=== PATIENT | female | born 1985 | race Hispanic/Latino ===

== ENCOUNTER 2019-07-13 08:53 | Day surgery (SDC) | payer OTHER ==
[~2019-07-13] VITALS: Ht 170.2 cm; Wt 75.8 kg
[~2019-07-13 08:53] MED LIST: BENADRYL25 MG PO; PRENATAL 19 TA1 EAC1 PO; REGLAN10 MG PO
[2019-07-13] MEDS ORDERED: XOPENEX HFA15 GM INH (09:06)
[2019-07-13] MEDS ORDERED: SINGULAIR10 MG PO (09:06)
[2019-07-13] MEDS ORDERED: FLONASE ALLERG9.9 ML NAS (09:07)
--- NOTE | 2019-07-13 12:05 | NUR ---
07/13/19 1205 Shannan,Candy 1155 PT ARRIVED TO PACU ASLEEP RESP EVEN AND UNLABORED ON 6L VIA MASK, PT REACTIVE TO TACTILE STIMULI. 1158 PT WOKE AND IR REORIENTED TO PACU, PT RIGHT BACK TO SLEEP. 1203 PT WOKE TO TACTILE STIMULI AND O2 MASK REMOVED. PT REPORTS SMALL AMOUNT OF CRAMPING. 1204 MD AT BEDSIDE, PT VERY DROWSY.
--- NOTE | 2019-07-14 06:43 | OR ---
[facility] [address] [place], [place] [address] Signed DATE OF OPERATION: 07/13/2019 SURGEON: Maikel Thompson MD PREOPERATIVE DIAGNOSIS: Missed . POSTOPERATIVE DIAGNOSIS: Missed . PROCEDURE: Suction dilation and curettage. ANESTHESIA: MAC. ESTIMATED BLOOD LOSS: 10 mL. SPECIMEN: Uterine contents/products of conception. DRAINS: None. FINDINGS: Vagina: No blood. Cervix: Thick, closed. Uterus 6 week size retroverted, mobile. No adnexal masses palpable. COMPLICATIONS: None. DESCRIPTION: The patient was brought into the operating room, placed in supine position, prepped and draped in the usual sterile fashion. Cummings was emptied with straight cath. Weighted speculum was placed in the vagina and the anterior lip of the cervix was grasped with an Allis clamp. Uterine cavity was sounded to 10 cm. The cervix was then serially dilated to a #8 Macanese dilator. A #8 curved suction tip curette was then attached to the suction machine. The machine turned on, tested, and then the curette carefully introduced through the cervix into the fundus of the uterus. The curette was scraped in Electronically Signed By: MAIKEL THOMPSON MD 07/14/19 0643 PATIENT NAME: HILARY COE OPERATIVE REPORT DATE OF : 83 REPORT #: [id number] PHYSICIAN: MAIKEL THOMPSON MD PCP: ULYSSES ARNOLD MD REPORT IS CONFIDENTIAL AND NOT TO BE RELEASED WITHOUT AUTHORIZATION [facility] [address] [facility] [place] [facility] [place], [place] [address] Signed 360 degree fashion removing moderate amount of normal-appearing placental tissue and membranes. The fundus and then all sides of the uterus were carefully scraped placing the curette into the fundus without suction and then applying suction while the curette was scraped towards the cervix and stopped before coming all the way through the cervix. This was continued until no additional tissue was removed. All instruments removed from the vagina. The uterus palpated and noted to be much more firm and smaller. The cervix was observed and noted to have good hemostasis. So procedure was terminated. The patient tolerated the procedure well, went to recovery room in good condition. Sponge and instrument count correct at the end of the procedure. Uterine curettings were sent to Pathology for identification. Maikel Thompson MD MJB/MODL /[id number] cc: Ulysses Arnold MD Copies: ULYSSES ARNLOD MD ~ Electronically Signed By: MAIKEL THOMPSON MD 07/14/19 0643 PATIENT NAME: ELHAMI,HILARY EDGAR OPERATIVE REPORT DATE OF : 83 REPORT #: [id number] PHYSICIAN: MAIKEL THOMPSON MD PCP: ULYSSES ARNOLD MD REPORT IS CONFIDENTIAL AND NOT TO BE RELEASED WITHOUT AUTHORIZATION
--- NOTE | 2019-07-15 17:08 | PATH ---
[facility] [address], [place] [address] Signed SPECIMEN(S): A PRODUCTS OF CONCEPTION SPECIMEN SOURCE: A. PRODUCTS OF CONCEPTION CLINICAL HISTORY: Missed AB. FINAL PATHOLOGIC DIAGNOSIS: Uterine contents: - Products of conception. LJA:cml:C2NR MICROSCOPIC EXAMINATION: Histologic sections of all submitted blocks are examined by light microscopy. These findings, together with the gross examination, support the pathologic diagnosis. GROSS DESCRIPTION: The specimen is received in a formalin filled specimen container labeled "RE". An aggregate of carmichael tissue admixed with a scant amount of hemorrhagic material is 5.2 x 4.0 x 2.3 cm. Included is a scant amount of spongy, membranous, placenta like tissue. There is no grossly appreciated tissue. Three farm loan representative sections are submitted in cassette A1. GW (under the direct supervision of a pathologist) The Gross Description was prepared using a voice recognition system. The report was reviewed for accuracy; however, sound-alike word errors, addition and/or deletions may occur. If there is any question about this report, please contact Client Services. PERFORMING LABORATORY: The technical component was performed by [facility], [address] [place] [id number] (Supervisor [facility]: Deonna Perez MD; CLIA# [id number]). [facility] [address] [address] (Supervisor [facility] [employer]: Jason Pandya MD; CLIA# [id number]). Diagnostician: Jason Pandya MD Pathologist PATIENT NAME: HILARY COE PATHOLOGY DATE OF : 83 REPORT #: [id number] PHYSICIAN: [facility] PCP: ULYSSES TORRES MD REPORT IS CONFIDENTIAL AND NOT TO BE RELEASED WITHOUT AUTHORIZATION [address] [place] [address] Signed Electronically Signed 07/15/2019 Copies: ~ PATIENT NAME: HILARY COE PATHOLOGY DATE OF : 83 REPORT #: [id number] PHYSICIAN: [facility] PATHOLOG[facility] PCP: ULYSSES TORRES MD REPORT IS CONFIDENTIAL AND NOT TO BE RELEASED WITHOUT AUTHORIZATION
== END 2019-07-13 12:53 | disposition home or self-care (01) ==
LOC: DS 08:53 → OPS 08:53 → DS 11:00 → OPS 11:00
PROVIDERS: General Practice
PROC: 10D17ZZ Extraction of Products of Conception, Retained, Via Natural or Artificial Opening (ICD-10-PCS; principal; 2019-07-13 11:00)
DX: O02.1 Missed abortion (principal); E28.2 Polycystic ovarian syndrome; J45.20 Mild intermittent asthma, uncomplicated; Z79.899 Other long term (current) drug therapy
CPT/HCPCS: 00952; 85025; J0131; J1100; J1885; J2250; J2405; J2704; J3475; J7121